=== PATIENT | female | born 1955 | race Caucasian/White ===

== ENCOUNTER 2018-07-23 13:35 | Emergency (ER) | payer BC ==
[~2018-07-23] VITALS: Ht 167.6 cm; Wt 66.0 kg
[~2018-07-23 13:35] MED LIST: LORA10TA3 PO; MECL-77 PO
[2018-07-23 13:38] VITALS: Ht 167.6 cm; Wt 66.0 kg
[2018-07-23] MEDS ORDERED: KETOROLAC 30 MG INJ IM STA (15:22)
[2018-07-23] MEDS ORDERED: CYCLOBENZAPRINE 10 MG TAB PO ONE (15:30)
[2018-07-23] MEDS ORDERED: CYCL10TA7 PO (15:53)
[2018-07-23] MEDS ORDERED: NAPR-985 PO (15:53)
[2018-07-23 16:12] VITALS: BP 118/78; PULSE 80; RESP 18
--- NOTE | 2018-07-24 07:52 | ERD ---
ER Documentation Chief Complaint Chief Complaint lower back pain HPI 62 yo F presents with complaint of low back pain radiating down the bilat legs for which she states to believe is a sciatica flare-up. Pt notes history of sciatica with similar presentations at time of flare up. Pt has been taking tylenol for pain with some improvement in symptoms. States tylenol helps to decrease severity of symptoms, but does not provide full relief. Pt denies bowel/bladder incontinence, loss motor function, or saddle anesthesia. No fevers, and no hx of IVDA. Pt denies trauma or injury to the area, is able to ambulate. ROS All systems reviewed and are negative except as per history of present illness. Medications Home Meds Active Scripts Cyclobenzaprine Hcl* (Cyclobenzaprine Hcl*) 10 Mg Tablet, 10 MG PO TID, #15 TAB Prov:DOUGLAS APONTE PA-C 07/23/18 Naproxen* (Naprosyn*) 500 Mg Tablet, 500 MG PO BID PRN for PAIN AND/OR INFLAMMATION, #30 TAB Prov:DOUGLAS APONTE PA-C 07/23/18 Meclizine Hcl* (Meclizine Hcl*) 25 Mg Tablet, 25 MG PO Q8H PRN for dizziness, #20 TAB Prov:ZOHREH MCNAMARA MD 03/04/15 Reported Medications Loratadine* (Loratadine*) 10 Mg Tablet, 10 MG PO DAILY, #30 TAB 03/04/15 Allergies Allergies: Coded Allergies: No Known Allergy (Unverified , 03/04/15) PMhx/Soc History of Surgery: No Anesthesia Reaction: No Hx Neurological Disorder: Yes (SCIATICA) Hx Respiratory Disorders: Yes (SEASONAL ALLERGIES) Hx Cardiac Disorders: No Hx Psychiatric Problems: No Hx Miscellaneous Medical Probl: No Hx Alcohol Use: No Hx Substance Use: No Hx Tobacco Use: No Smoking Status: Never smoker FmHx Family History: No diabetes, No coronary disease, No other Physical Exam Vitals Vital Signs Date Temp Pulse Resp B/P (MAP) Pulse Ox O2 O2 Flow FiO2 Time Delivery Rate 07/23/18 97.6 80 18 118/78 97 Room Air 16:12 (91) 07/23/18 98.1 111 18 111/57 96 13:38 (75) Physical Exam Gen: alert, no acute distress and cooperative, A&Ox3 Head/Eyes: normocephalic, atraumatic, PERRL, conjunctiva normal Neck: supple, nontender, full ROM, no midline vertebral tenderness, no LAD Lungs: no respiratory distress, lungs CTA bilaterally, no wheezes, no rhonchi, no retractions Cardio: HR normal, no pedal edema Skin: normal to inspection, color normal, warm, dry, intact Neuro: alert, normal speech, no motor deficits, no sensory deficits, slow steady gait Abd: soft, nontender, no rebound, no guarding Ext: Inspection normal, Normal range of motion to all major joints Back: Inspection normal, no midline or CVA tenderness, bilateral lower lumbar paraspinous muscle spasm and tenderness, Full ROM, bilateral positive straight leg raise, normal dorsiflexion BLE, NVI distally. Psych: calm, no SI/HI, no hallucinations Neuro: Alert and oriented x3. Appropriate speech, mood and affect. Face is symmetric. Speech is normal. CN II-XII intact. Moves all extremities equally. Ambulates with a strong, steady gait. Results 24 hrs Current Medications Medications Dose Sig/James Start Time Status Last (Trade) Ordered Route PRN Stop Time Admin Dose Reason Admin Ketorolac 30 mg ONCE STAT 07/23/18 DC 07/23/18 Tromethamine IM 15:22 15:32 (Toradol) 07/23/18 15:26 10 mg ONCE ONCE 07/23/18 DC 07/23/18 Cyclobenzapri PO 15:30 15:32 ne HCl 07/23/18 15:31 (Flexeril) Procedures/MDM MDM: 62yo F Presents to the ED for evaluation of sciatica flare-up. Patient was seen and examined, triage note and the nursing notes were reviewed. Patient is in no distress, ambulates with slow, steady gait, stable-appearing. No new injuries reported today and patient reports acute onset, non-traumatic back pain. No neuro deficits. The patient had no significant deformity, step-offs, altered mental status, or neurologic deficits on physical examination. No bowel or bladder incontinence. No fevers or other systemic complaints. Pain was treated with analgesics, muscle relaxant and anti-inflammatory and patient reported improvement of symptoms at time of discharge. Suspicion for cauda equina, cord compression, epidural abscess, abdominal aortic aneurysm or other serious etiology is low. Patient was reassured and follow-up with PCP was reinforced. Plan is to discharge home with close follow-up. Pt discharged home with prescription for Naproxen and Flexeril. Advised to start naproxen tomorrow as pt given toradol while in ED. Pt stable for discharge with outpatient management at this time. Strict ED return precautions discussed. Pt expressed verbal understanding and agreement to treatment plan. All questions addressed and answered. Departure Diagnosis: Primary Impression: Sciatica Laterality: bilateral Qualified Codes: M54.31 - Sciatica, right side; M54.32 - Sciatica, left side Condition: Stable Patient Instructions: Back Pain W/ Sciatica DOUGLAS APONTE PA-C July 24, 2018 07:52
== END 2018-07-23 16:13 | disposition home or self-care (01) ==
LOC: FTE 13:35
DX: M54.31 Sciatica, right side (principal); M54.32 Sciatica, left side
CPT/HCPCS: J1885; Z7610; 96372